=== PATIENT | female | born 1980 | race American Indian/Alaskan Native ===

== ENCOUNTER 2021-05-25 19:27 | Emergency (ER) | payer SELFPAY ==
[2021-05-25 20:29] VITALS: BP 121/65
[2021-05-25 21:01] LABS: Bilirubin,Urine NEG (Negative); Blood,Urine LG (Negative); Color,Urine Yellow (Yellow); Mucus,Urine FEW /HPF; Urobilinogen,Urine < 2.0 mg/dL (<2.0)
[2021-05-25 21:02] LABS: RBC,Urine > 182.0 /HPF (0.0-6.0)
[2021-05-25 22:04] LABS: Basophils % (Auto) 0.5 % (0.0-1.8); Eosinophils # (Auto) 0.5 K/mm3 (0.0-0.4); Eosinophils % (Auto) 5.4 % (0.0-4.3); Hematocrit 41.3 % (30.3-42.9); Hemoglobin 13.3 gm/dl (10.1-14.3); Lymphocytes # (Auto) 3.4 K/mm3 (1.2-5.4); Lymphocytes % (Auto) 37.7 % (13.4-35.0); Mean Corpuscular HGB Conc 32 % (30-34); Mean Corpuscular Volume 82 fl (79-97); Monocytes # (Auto) 0.7 K/mm3 (0.0-0.8); Monocytes % (Auto) 7.4 % (0.0-7.3); Platelet Count 275 K/mm3 (140-440); Red Blood Count 5.06 M/mm3 (3.65-5.03); Red Cell Distribution Width 14.8 % (13.2-15.2)
[2021-05-25 22:13] LABS: Alanine Aminotransferase 15 units/L (7-56); Albumin 4.3 g/dL (3.9-5); BUN/Creatinine Ratio 13; Blood Urea Nitrogen 12 mg/dL (7-17); Calcium 9.3 mg/dL (8.4-10.2); Hemolysis Index 12
--- NOTE | 2021-05-25 22:29 | Cat Scan Report ---
CT ABDOMEN AND PELVIS WITHOUT CONTRAST INDICATION / CLINICAL INFORMATION: RIGHT sided flank / pelvic pain, Hx of U.T.I.'s. TECHNIQUE: Axial CT images were obtained through the abdomen and pelvis without IV contrast. All CT scans at this location are performed using CT dose reduction for ALARA by means of automated exposure control. COMPARISON: None available. FINDINGS: LOWER CHEST: No significant abnormality LIVER: No significant abnormality GALLBLADDER/BILIARY TREE: No significant abnormality PANCREAS: No significant abnormality SPLEEN: No significant abnormality ADRENALS: No significant abnormality KIDNEYS / URETER: Unenhanced kidneys demonstrate no acute abnormality. There is no urolithiasis or hy dronephrosis. Further evaluation of the renal parenchyma is limited without intravenous contrast. URINARY BLADDER: Bladder is partially decompressed, though grossly unremarkable. REPRODUCTIVE ORGANS: No significant abnormality STOMACH / BOWEL: No significant abnormality. The appendix is normal in caliber. LYMPH NODES: No significant adenopathy. VASCULATURE: No significant abnormality. OTHER: No free air, free fluid, or focal fluid collection is identified. SKELETAL SYSTEM: Mild degenerative changes of the lower lumbar spine. No acute osseous findings. IMPRESSION: 1. No significant abnormality of the abdomen or pelvis, given limitations of this noncontrast study. No urolithiasis or hydronephrosis. Signer Name: Michael Collazo MD Signed: 05/25/2021 10:24 PM Workstation Name: [id number]
--- NOTE | 2021-05-26 01:25 | Emergency Department Report ---
ED Abdominal Pain HPI - General Chief Complaint: Abdominal Pain Stated Complaint: PAIN ON SIDE POSS UTI Time Seen by Provider: 05/25/21 21:25 Source: patient Mode of arrival: Ambulatory Limitations: No Limitations - History of Present Illness Initial Comments: 40-year-old gentleman female with medical history of peripheral infection presents emerge department complaining of right flank pain radiating down to right hypochondriac area and down to the suprapubic region associated with increased urinary frequency and urgency and some dysuria on urination presents emergency department with a suspicion of urinary tract infection or a kidney stone. She currently menstruating she reports no malodorous vaginal discharge preceding her menses were no lesions to the hands or vaginal MD Complaint: abdominal pain -: week(s) (23) Location: diffuse Radiation: none Severity: mild Severity scale (0 -10): 8 Quality: dull Consistency: constant Improves With: nothing Worsens With: nothing Associated Symptoms: denies other symptoms. denies: vomiting, diarrhea, constipation, dysuria, hematemesis, hematochezia, hematuria, anorexia, syncope - Related Data Previous Rx's Medication Instructions Recorded Last Taken Type Azithromycin [Zithromax TAB] 1,000 mg PO QDAY #2 tablet 05/26/21 Unknown Rx Doxycycline Hyclate [Doxycycline 100 mg PO Q12HR #20 tab 05/26/21 Unknown Rx Hyclate TAB] Phenazopyridine [Pyridium] 200 mg PO TID #9 tab 05/26/21 Unknown Rx metroNIDAZOLE [Flagyl] 2,000 mg PO ONCE #4 tablet 05/26/21 Unknown Rx Allergies Allergy/AdvReac Type Severity Reaction Status Date / Time No Known Allergies Allergy Unverified 05/25/21 20:30 ED Review of Systems ROS: Stated complaint: PAIN ON SIDE POSS UTI Other details as noted in HPI Comment: All other systems reviewed and negative ED Past Medical Hx - Past Medical History Previous Medical History?: No - Surgical History Past Surgical History?: No - Medications Home Medications: Home Medications Medication Instructions Recorded Confirmed Last Taken Type Azithromycin [Zithromax TAB] 1,000 mg PO QDAY #2 tablet 05/26/21 Unknown Rx Doxycycline Hyclate [Doxycycline 100 mg PO Q12HR #20 tab 05/26/21 Unknown Rx Hyclate TAB] Phenazopyridine [Pyridium] 200 mg PO TID #9 tab 05/26/21 Unknown Rx metroNIDAZOLE [Flagyl] 2,000 mg PO ONCE #4 tablet 05/26/21 Unknown Rx ED Physical Exam - General Limitations: No Limitations General appearance: alert, in no apparent distress - Head Head exam: Present: atraumatic, normocephalic - Eye Eye exam: Present: normal appearance - ENT ENT exam: Present: mucous membranes moist - Neck Neck exam: Present: normal inspection - Respiratory Respiratory exam: Present: normal lung sounds bilaterally. Absent: respiratory distress - Cardiovascular Cardiovascular Exam: Present: regular rate, normal rhythm. Absent: systolic murmur, diastolic murmur, rubs, gallop - GI/Abdominal GI/Abdominal exam: Present: soft, tenderness (To the right flank area and right CVA region.), normal bowel sounds - Extremities Exam Extremities exam: Present: normal inspection - Back Exam Back exam: Present: normal inspection - Neurological Exam Neurological exam: Present: alert, oriented X3 - Psychiatric Psychiatric exam: Present: normal affect, normal mood - Skin Skin exam: Present: warm, dry, intact, normal color. Absent: rash ED Course Vital Signs 05/25/21 20:26 Temperature 98.3 F Pulse Rate 68 Respiratory 17 Rate Blood Pressure 121/65 [Right] O2 Sat by Pulse 96 Oximetry ED Medical Decision Making - Lab Data Result diagrams: 05/25/21 21:36 05/25/21 21:36 - Radiology Data Radiology results: report reviewed [place] [id number] Cat Scan Report Signed Patient: MAHAMED MICHEL MR#: [id number] : 1980 Acct:[id number] Age/Sex: 40 / F ADM Date: 05/25/21 Loc: ED Attending Dr: Ordering Physician: EMELY WAGGONER Date of Service: 05/25/21 Procedure(s): CT abdomen pelvis wo con Accession Number(s): [id number] cc: EMELY WAGGONER CT ABDOMEN AND PELVIS WITHOUT CONTRAST INDICATION / CLINICAL INFORMATION: RIGHT sided flank / pelvic pain, Hx of U.T.I.'s. TECHNIQUE: Axial CT images were obtained through the abdomen and pelvis without IV contrast. All CT scans at this location are performed using CT dose reduction for ALARA by means of automated exposure control. COMPARISON: None available. FINDINGS: LOWER CHEST: No significant abnormality LIVER: No significant abnormality GALLBLADDER/BILIARY TREE: No significant abnormality PANCREAS: No significant abnormality SPLEEN: No significant abnormality ADRENALS: No significant abnormality KIDNEYS / URETER: Unenhanced kidneys demonstrate no acute abnormality. There is no urolithiasis or hydronephrosis. Further evaluation of the renal parenchyma is limited without intravenous contrast. URINARY BLADDER: Bladder is partially decompressed, though grossly unremarkable. REPRODUCTIVE ORGANS: No significant abnormality STOMACH / BOWEL: No significant abnormality. The appendix is normal in caliber. LYMPH NODES: No significant adenopathy. VASCULATURE: No significant abnormality. OTHER: No free air, free fluid, or focal fluid collection is identified. SKELETAL SYSTEM: Mild degenerative changes of the lower lumbar spine. No acute osseous findings. IMPRESSION: 1. No significant abnormality of the abdomen or pelvis, given limitations of this noncontrast study. No urolithiasis or hydronephrosis. Signer Name: Lacey Gates MD Signed: 05/25/2021 10:24 PM Workstation Name: [id number] Transcribed By: GIULIANA Dictated By: LACEY GATES MD Electronically Authenticated By: LACEY GATES MD Signed Date/Time: 05/25/212223 DD/ 19 TD/TT: - Medical Decision Making Abdominal pain in the this patient presents with abdominal pain of unclear etiology. A CT scan was performed to evaluate for potential causes of the abdominal pain, however, neither the clinical exam nor the CT has identified an emergent etiology for the abdominal pain. Specifically, given the benign exam, the laboratory studies, and unremarkable CT, I have a very low suspicion for appendicitis, ischemic bowel, bowel perforation, or any other life threatening disease. I have discussed with the patient the level of uncertainty with undifferentiated abdominal pain and clearly explained the need to follow-up as noted on the discharge instructions, or return to the Emergency Department immediately if the pain worsens, develops fever, persistent and uncontrollable vomiting, or for any new symptoms or concerns. Critical care attestation.: If time is entered above; I have spent that time in minutes in the direct care of this critically ill patient, excluding procedure time. ED Disposition Clinical Impression: Abdominal pain, UTI (urinary tract infection) Disposition: HOME / SELF CARE / HOMELESS Is pt being admited?: No Does the pt Need Aspirin: No Condition: Stable Instructions: Abdominal Pain (ED), Abdominal Pain, Adult, Urinalysis Test, Urinary Tract Infection, Adult, Antibiotic Medicine, Adult Prescriptions: Doxycycline Hyclate [Doxycycline Hyclate TAB] 100 mg PO Q12HR #20 tab metroNIDAZOLE [Flagyl] 2,000 mg PO ONCE #4 tablet Phenazopyridine [Pyridium] 200 mg PO TID #9 tab Azithromycin [Zithromax TAB] 1,000 mg PO QDAY #2 tablet Referrals: PRIMARY CARE, [Primary Care Provider] - 3-5 Days [facility] [Provider Group] - 3-5 Days [facility] [Outside] - 3-5 Days (Follow-up with the health department for complete STD testing)
== END 2021-05-26 02:00 | disposition home or self-care (01) ==
LOC: ED 19:27
DX: N39.0 Urinary tract infection, site not specified (principal)
CPT/HCPCS: 36415; 74176; 80053; 81001; 85025; 87086; 99284

== ENCOUNTER 2022-01-11 11:05 | Emergency (ER) | payer SELFPAY ==
[2022-01-11 12:39] LABS: Bilirubin,Urine NEG (Negative); Blood,Urine SM (Negative); Color,Urine Straw (Yellow); HCG Qualitative,Urine Negative (Negative); Protein,Urine <15 mg/dL mg/dL (Negative); Urobilinogen,Urine < 2.0 mg/dL (<2.0)
[2022-01-11 12:43] LABS: Mucus,Urine FEW /HPF
[2022-01-11 15:58] VITALS: BP 102/57
--- NOTE | 2022-01-11 16:45 | Emergency Department Report ---
ED Female HPI - General Chief complaint: Urogenital-Female Stated complaint: POSS UTI Source: patient Mode of arrival: Ambulatory Limitations: No Limitations - History of Present Illness Initial comments: 41-year-old female presents to the ED complaining of white vaginal discharge , pelvic pain and urinary frequency. Patient states that she has a urinary tract infection due to her constantly having to use a run to the bathroom. She states the symptoms started 2 days ago. Patient denies any nausea vomiting or diarrhea.She states that she had last unprotected sex 2 weeks ago.. Patient denies any fever or chills. Patient is alert and oriented x3. No acute distress noted .No ill appearance noted. MD Complaint: vaginal discharge - Related Data Previous Rx's Medication Instructions Recorded Last Taken Type Azithromycin [Zithromax TAB] 1,000 mg PO QDAY #2 tablet 05/26/21 Unknown Rx Doxycycline Hyclate [Doxycycline 100 mg PO Q12HR #20 tab 05/26/21 Unknown Rx Hyclate TAB] Phenazopyridine [Pyridium] 200 mg PO TID #9 tab 05/26/21 Unknown Rx metroNIDAZOLE [Flagyl] 2,000 mg PO ONCE #4 tablet 05/26/21 Unknown Rx Fluconazole [Diflucan TAB] 200 mg PO QDAY 2 Days #2 tablet 01/11/22 Unknown Rx metroNIDAZOLE [Flagyl] 500 mg PO Q12HR 7 Days #14 tab 01/11/22 Unknown Rx Allergies Allergy/AdvReac Type Severity Reaction Status Date / Time No Known Allergies Allergy Verified 01/11/22 11:12 ED Review of Systems ROS: Stated complaint: POSS UTI Other details as noted in HPI Constitutional: denies: chills, fever Eyes: denies: eye pain, eye discharge, vision change ENT: denies: ear pain, throat pain Respiratory: denies: cough, shortness of breath, wheezing Cardiovascular: denies: chest pain, palpitations Endocrine: no symptoms reported Gastrointestinal: denies: abdominal pain, nausea, diarrhea Genitourinary: discharge. denies: urgency, dysuria Musculoskeletal: denies: back pain, joint swelling, arthralgia Skin: denies: rash, lesions Neurological: denies: headache, weakness, paresthesias Psychiatric: denies: anxiety, depression Hematological/Lymphatic: denies: easy bleeding, easy bruising ED Past Medical Hx - Medications Home Medications: Home Medications Medication Instructions Recorded Confirmed Last Taken Type Azithromycin [Zithromax TAB] 1,000 mg PO QDAY #2 tablet 05/26/21 Unknown Rx Doxycycline Hyclate [Doxycycline 100 mg PO Q12HR #20 tab 05/26/21 Unknown Rx Hyclate TAB] Phenazopyridine [Pyridium] 200 mg PO TID #9 tab 05/26/21 Unknown Rx metroNIDAZOLE [Flagyl] 2,000 mg PO ONCE #4 tablet 05/26/21 Unknown Rx Fluconazole [Diflucan TAB] 200 mg PO QDAY 2 Days #2 tablet 01/11/22 Unknown Rx metroNIDAZOLE [Flagyl] 500 mg PO Q12HR 7 Days #14 tab 01/11/22 Unknown Rx ED Physical Exam - General Limitations: No Limitations General appearance: alert, in no apparent distress - Head Head exam: Present: atraumatic, normocephalic - Eye Eye exam: Present: normal appearance - ENT ENT exam: Present: mucous membranes moist - Neck Neck exam: Present: normal inspection - Respiratory Respiratory exam: Present: normal lung sounds bilaterally. Absent: respiratory distress - Cardiovascular Cardiovascular Exam: Present: regular rate, normal rhythm. Absent: systolic murmur, diastolic murmur, rubs, gallop - GI/Abdominal GI/Abdominal exam: Present: soft, normal bowel sounds - Extremities Exam Extremities exam: Present: normal inspection - Back Exam Back exam: Present: normal inspection - Neurological Exam Neurological exam: Present: alert, oriented X3 - Psychiatric Psychiatric exam: Present: normal affect, normal mood - Skin Skin exam: Present: warm, dry, intact, normal color. Absent: rash ED Course Vital Signs 01/11/22 01/11/22 11:12 15:56 Temperature 98.4 F 98.1 F Pulse Rate 88 80 Respiratory 18 18 Rate Blood Pressure 119/71 Blood Pressure 102/57 [Right] O2 Sat by Pulse 97 99 Oximetry ED Medical Decision Making - Medical Decision Making 41-year-old female presents to the ED complaining of white vaginal discharge , pelvic pain and urinary frequency. Patient states that she has a urinary tract infection due to her constantly having to use a run to the bathroom. She states the symptoms started 2 days ago. Patient denies any nausea vomiting or diarrhea.She states that she had last unprotected sex 2 weeks ago.. Patient denies any fever or chills. Patient is alert and oriented x3. No acute distress noted .No ill appearance noted. Pelvic examination shows white discharge. wet prep positive for bacterial vaginosis. Rechecked the patient is resting quietly quietly and comfortable and feeling better. I discussed the results of diagnostic study, my clinical impression and the plan for further treatment with the patient. Patient agrees with plan and d ischarge at this present time. All question addressed. I have given the patient instruction regarding a diagnosis ,expectation ,follow- up and return precaution. I explained to the patient that emergent condition may arise and to return to the ED for new worsen and any new persisting condition. I have explained the importance of following up with the primary care physician or referral physician listed below has instructed. The patient verbalized understanding of discharge instruction. Critical care attestation.: If time is entered above; I have spent that time in minutes in the direct care of this critically ill patient, excluding procedure time. ED Disposition Clinical Impression: Bacterial vaginosis Disposition: 01 HOME / SELF CARE / HOMELESS Is pt being admited?: No Does the pt Need Aspirin: No Condition: Stable Instructions: Bacterial Vaginosis (ED), Bacterial Vaginosis, [id number] Additional Instructions: Take medication as prescribed Return to the ED for any worsening symptoms Prescriptions: Fluconazole [Diflucan TAB] 200 mg PO QDAY 2 Days #2 tablet metroNIDAZOLE [Flagyl] 500 mg PO Q12HR 7 Days #14 tab Referrals: [facility] [Provider Group] - 3-5 Days Forms: STI Treatment and Prevention Time of Disposition: 17:50
== END 2022-01-11 18:27 | disposition home or self-care (01) ==
LOC: ED 11:05
DX: N76.0 Acute vaginitis (principal)
CPT/HCPCS: 81001; 81025; 87210; 99283